=== PATIENT | male | born 1950 | race Caucasian/White ===

== ENCOUNTER → 2017-01-06 | Outpatient (CLI) | payer MEDICARE, SELFPAY ==
[~2017-01-06] VITALS: Ht 170.2 cm; Wt 74.8 kg
== END ==
LOC: OPSV 15:44
DX: M54.9 Dorsalgia, unspecified (principal); Z88.5 Allergy status to narcotic agent; Z88.1 Allergy status to other antibiotic agents
CPT/HCPCS: 96372; J1885

== ENCOUNTER → 2017-02-28 | Outpatient (CLI) | payer MEDICARE ==
[2017-02-28 09:18] LABS: BUN/CREATININE RATIO 16 (0-10)
== END ==
LOC: LAB 07:38
PROVIDERS: Family Medicine
DX: Z13.220 Encounter for screening for lipoid disorders (principal); E11.9 Type 2 diabetes mellitus without complications
CPT/HCPCS: 36415; 80048; 80061; 80076; 82043; 83036

== ENCOUNTER → 2017-03-07 | Outpatient (CLI) | payer MEDICARE, OTHER ==
[~2017-03-07] VITALS: Ht 170.2 cm; Wt 74.8 kg
== END ==
LOC: OPSV 13:25
DX: M81.0 Age-related osteoporosis without current pathological fracture (principal)
CPT/HCPCS: 96365; J3489; J7050

== ENCOUNTER → 2020-11-27 | Outpatient (CLI) | payer MEDICARE ==
[~2020-11-27] MED LIST: ALBUTEROL2.5 MG/3 M INH; ALPRAZOLAM ER0.5 MG PO; BENTYL 20MG TAB20 MG PO; CALCIUM600 MG PO; COZAAR100 MG PO; FLONASE 0.05% N16 GM; NEXIUM40 MG PO; NORCO 10-325 T1 EACH PO; NORFLEX 100 MG100 MG PO; NORVASC2.5 MG PO; ZANTAC150 MG PO; ZYRTEC10 M3 PO
[2020-11-27 09:39] LABS: BUN/CREATININE RATIO 21 (0-10)
[2020-11-28 10:13] LABS: CREATININE, URINE 15.4 mg/dL (Not Estab.); MICROALB/CREAT RATIO <19 (0-29)
== END ==
LOC: LAB 08:31
PROVIDERS: Family Medicine
DX: E11.9 Type 2 diabetes mellitus without complications (principal)
CPT/HCPCS: 36415; 80053; 80061; 82043; 82570; 83036

== ENCOUNTER → 2021-03-23 | Outpatient (CLI) | payer MEDICARE ==
[2021-03-23 08:47] LABS: BUN/CREATININE RATIO 18 (0-10)
== END ==
LOC: LAB 07:34
PROVIDERS: Family Medicine
DX: E11.9 Type 2 diabetes mellitus without complications (principal); I10 Essential (primary) hypertension
CPT/HCPCS: 36415; 80053; 80061; 83036; 84443

== ENCOUNTER → 2021-07-08 | Outpatient (CLI) | payer MEDICARE | LOC: RAD 12:51 | DX: M79.642 Pain in left hand (principal) | CPT/HCPCS: 73130 ==

== ENCOUNTER → 2021-07-16 | Outpatient (CLI) | payer MEDICARE, OTHER ==
[2021-07-16 10:17] LABS: BUN/CREATININE RATIO 15 (0-10)
[2021-07-17 06:10] LABS: CREATININE, URINE 23.7 mg/dL (Not Estab.); MICROALB/CREAT RATIO <13 (0-29)
[2021-07-17 08:12] LABS: TESTOSTERONE, SERUM 308 ng/dL (264-916)
== END ==
LOC: LAB 08:20
PROVIDERS: Family Medicine
DX: Z12.5 Encounter for screening for malignant neoplasm of prostate (principal); E11.9 Type 2 diabetes mellitus without complications; R39.12 Poor urinary stream; R53.83 Other fatigue
CPT/HCPCS: 36415; 80053; 80061; 82043; 82570; 83036; 84403; G0103

== ENCOUNTER → 2022-01-31 | Outpatient (CLI) | payer MEDICARE | LOC: EXRD 13:00 | DX: M81.0 Age-related osteoporosis without current pathological fracture (principal) | CPT/HCPCS: 77080 ==